=== PATIENT | male | born 2000 | race Caucasian/White ===

== ENCOUNTER 2025-05-20 15:13 | Day surgery (SDC) | payer BC ==
[2025-05-20] MEDS ORDERED: CEFAZOLIN 2 GM VIAL ONE (15:31)
[2025-05-20] MEDS ORDERED: Bupivacaine/Epinephrine 0.25% 30 ML VIAL ONE ×2 (15:31→16:21)
[2025-05-20] MEDS ORDERED: Famotidine/PF 20 mg/2ml Vial ONE (15:51)
[2025-05-20] MEDS ORDERED: Ketorolac Tromethamine 30 MG (1 mL) VIAL ONE (15:53)
[2025-05-20] MEDS ORDERED: PROPOFOL 20 ML ONE ×2 (15:53→16:04)
[2025-05-20] MEDS ORDERED: Rocuronium Bromide 10 MG/ML (10ML VIAL) ONE (15:54)
[2025-05-20] MEDS ORDERED: SUGAMMADEX SODIUM 200 MG/2 ML VIAL ONE (15:54)
[2025-05-20] MEDS ORDERED: SUCCINYLCHOLINE/SOD CL,ISO/PF 200 MG/10 ML SYRINGE FS ONE (15:54)
[2025-05-20] MEDS ORDERED: Ondansetron PF 4 MG/2 ML Vial ONE (15:54)
[2025-05-20] MEDS ORDERED: HYDROcodone/Acetaminophen 5/325 mg Tablet ONE (17:36)
== END 2025-05-20 18:03 | disposition home or self-care (01) ==
LOC: CSHSDC/OP 15:13
PROVIDERS: ATTEND Surgery
PROC: 0DTJ4ZZ Resection of Appendix, Percutaneous Endoscopic Approach (ICD-10-PCS; principal; 2025-05-20)
DX: K35.33 Acute appendicitis with perforation, localized peritonitis, and gangrene, with abscess (principal); Z88.0 Allergy status to penicillin
CPT/HCPCS: 88304; A4649; J1100; J1885; J2704; J3010